=== PATIENT | female | born 1985 | race Caucasian/White ===

== ENCOUNTER 2017-04-13 13:00 | Emergency (ER) | payer OTHER ==
[~2017-04-13] VITALS: Ht 157.5 cm; Wt 61.0 kg
[~2017-04-13 13:00] MED LIST: CIPR500T4 PO; PHEN-538 PO
[2017-04-13 13:07] VITALS: Ht 157.5 cm; Wt 61.0 kg
[2017-04-13] MEDS ORDERED: ACETAMINOPHEN 500 MG TAB PO STA (13:20)
--- NOTE | 2017-04-13 13:22 | ERD ---
ER Documentation Chief Complaint Date/Time DATE: 04/13/17 TIME: 13:20 Chief Complaint DYSURIA X 5 DAYS HPI This a 32-year-old female who presents the emergency department today complaining of burning and pain with urination for the past 5 days. States that she also has urinary frequency. Patient states she initially had back pain but that resolved. States she had a urinary tract infection many years ago. States she had a little bit of blood when she wiped. Denies any fevers or chills. ROS All systems reviewed and are negative except as per history of present illness. Medications Home Meds Active Scripts Cephalexin* (Keflex*) 500 Mg Capsule, 500 MG PO QID for 7 Days, CAP Prov:ALEXANDER MIGUEL PA-C 04/13/17 Acetaminophen* (Tylophen*) 500 Mg Capsule, 1 CAP PO Q6H Y for PAIN AND OR ELEVATED TEMP, #30 CAP Prov:ALEXANDER MIGUEL PA-C 04/13/17 Phenazopyridine Hcl* (Pyridium*) 200 Mg Tab, 200 MG PO TID Y for DYSURIA, #6 TAB Prov:ALMA ALLEN MD 05/30/15 Ciprofloxacin Hcl* (Ciprofloxacin Hcl*) 500 Mg Tablet, 500 MG PO BID for 5 Days , TAB Prov:ALMA ALLEN MD 05/30/15 Reported Medications [None] No Conflict Check 10/22/11 Allergies Allergies: Coded Allergies: No Known Allergy (Unverified , 07/16/14) PMhx/Soc Medical and Surgical Hx: pt denies Medical Hx, pt denies Surgical Hx History of Surgery: No Anesthesia Reaction: No Hx Neurological Disorder: No Hx Respiratory Disorders: No Hx Cardiac Disorders: No Hx Psychiatric Problems: No Hx Miscellaneous Medical Probl: No Hx Alcohol Use: No Hx Substance Use: No Hx Tobacco Use: No Smoking Status: Never smoker Physical Exam Vitals Vital Signs Date Time Temp Pulse Resp B/P Pulse Ox O2 Delivery O2 Flow Rate FiO2 04/13/17 13:07 98.3 76 18 121/67 98 Physical Exam Const: No acute distress Head: Atraumatic Eyes: Normal Conjunctiva ENT: Normal External Ears, Nose and Mouth. Neck: Full range of motion..~ No meningismus. Resp: Clear to auscultation bilaterally Cardio: Regular rate and rhythm, no murmurs Abd: Soft, mild suprapubic tenderness, non distended. Normal bowel sounds. No right lower quadrant pain. No tenderness McBurney's. Skin: No petechiae or rashes Back: No midline or flank tenderness no CVA tenderness peer Ext: No cyanosis, or edema Neur: Awake and alert Psych: Normal Mood and Affect Results 24 hrs Laboratory Tests Test 04/13/17 13:31 Bedside Urine pH (LAB) 7.5 Bedside Urine Protein (LAB) 2+ Bedside Urine Glucose (UA) Negative Bedside Urine Ketones (LAB) Negative Bedside Urine Blood 1+ Bedside Urine Nitrite (LAB) Negative Bedside Urine Leukocyte Esterase (L 2+ Current Medications Medications (Trade) Dose Ordered Sig/Nick Route PRN Reason Start Time Stop Time Status Last Admin Dose Admin Acetaminophen (Tylenol Tab) 500 mg ONCE STAT PO 04/13/17 13:20 04/13/17 13:21 DC 04/13/17 13:29 Procedures/MDM This 32-year-old female who presents the emergency department today complaining of burning and pain with urination and urinary frequency for the past 5 days. UA shows 2+ leukocyte esterase and 1+ blood. Negative nitrates. Negative glucose. Patient symptoms at the time is consistent with urinary tract infection. Patient was given Tylenol here in the emergency department. Patient is afebrile and otherwise well-appearing. She has no CVA tenderness. Low suspicion for pyelonephritis or nephrolithiasis. Low suspicion for acute surgical abdomen. Patient given a prescription for Tylenol and Keflex for home At this time the patient is stable for discharge and outpatient management. Patient should follow up with their PCP in the next 1-2 days. They may return to the emergency department sooner for any persistent or worsening of symptoms. Patient understood and agreed with the plan. Departure Diagnosis: Primary Impression: UTI (urinary tract infection) Urinary tract infection type: site unspecified Hematuria presence: with hematuria Qualified Code: N39.0 - Urinary tract infection with hematuria, site unspecified Condition: ALEXANDER Robertson PA-C Apr 13, 2017 13:22
[2017-04-13 13:27] LABS: URINE BLOOD (Dip) POC 1+ (NEGATIVE)
[2017-04-13] MEDS ORDERED: ACET500C5 PO (13:34)
[2017-04-13] MEDS ORDERED: CEPH-443 PO (13:34)
== END 2017-04-13 13:40 | disposition home or self-care (01) ==
LOC: FTE 13:00
DX: N39.0 Urinary tract infection, site not specified (principal)
CPT/HCPCS: 81003; Z7610; 99283

== ENCOUNTER 2017-11-03 20:01 | Emergency (ER) | END 2017-11-03 21:09 | disposition home or self-care (01) ==

== ENCOUNTER 2017-12-26 10:27 | Emergency (ER) | END 2017-12-26 11:49 | disposition home or self-care (01) ==

== ENCOUNTER 2019-01-18 09:52 | Emergency (ER) | payer OTHER ==
[~2019-01-18] VITALS: Ht 157.5 cm; Wt 58.7 kg
[~2019-01-18 09:52] MED LIST changes: +ACET500C5 PO; +BENZ-6 PO; +CEPH-443 PO; +FLUT9.9S NASAL; +IBUP-1542 PO; +PHEN-537 PO
[2019-01-18 09:56] VITALS: BP 118/71; PULSE 79; RESP 18; Ht 157.5 cm; Wt 58.7 kg
[2019-01-18] MEDS ORDERED: D-ME473S2 PO (10:38)
[2019-01-18] MEDS ORDERED: AZIT250T PO (10:38)
[2019-01-18] MEDS ORDERED: MED4DP PO (10:38)
[2019-01-18] MEDS ORDERED: ALBU8.5H8 INH (10:38)
[2019-01-18] MEDS ORDERED: BENZ-6 PO (10:38)
--- NOTE | 2019-01-18 10:53 | ERD ---
ER Documentation Chief Complaint Chief Complaint cough and sorethroat HPI 33-year-old female presenting with cough and sore throat with tactile fevers at home. Has not taken medications for symptoms. Has a mild runny nose. Denies medical problems. NKDA. Surgical history . Social history denies ROS All systems reviewed and are negative except as per history of present illness. Medications Home Meds Active Scripts Azithromycin* (Zithromax*) 250 Mg Tablet, 250 MG PO .ZPACK DIRECTED, #6 TAB TAKE 500 MG (2 TABS) THE FIRST DAY THEN 250 MG (1 TAB) DAYS 2-5 Prov:AUSTIN GARCIA PA-C 01/18/19 Albuterol Sulfate* (Proair HFA*) 8.5 Gm Hfa.aer.ad, 2 PUFF INH Q4, #1 INHALER Prov:AUSTIN GARCIA PA-C 01/18/19 Methylprednisolone* (Medrol* DOSE PACK) 4 Mg/Dose-Pack Tab.ds.pk, 4 MG PO . DIRECTED, #1 PACKET Prov:AUSTIN GARCIA PA-C 01/18/19 Dextromethorphan Hb-Promethazine Hcl* (Promethazine DM* Syrup) 473 Ml Syrup, 5 ML PO Q6 PRN for COUGH, #100 ML Prov:AUSTIN GARCIA PA-C 01/18/19 Benzonatate* (Tessalon Perle*) 100 Mg Capsule, 100 MG PO Q8H PRN for COUGH, #30 CAP Prov:AUSTIN GARCIA PA-C 01/18/19 Ibuprofen* (Motrin*) 600 Mg Tab, 600 MG PO Q6, #30 TAB Prov:MARC YUN PA-C 12/26/17 Phenazopyridine Hcl* (Pyridium*) 100 Mg Tab, 100 MG PO TID PRN for URINARY PAIN, #8 TAB Prov:MARC YUN PA-C 12/26/17 Cephalexin* (Keflex*) 500 Mg Capsule, 500 MG PO TID for 5 Days, CAP Prov:MRAC YUN PA-C 12/26/17 Acetaminophen* (Tylophen*) 500 Mg Capsule, 1 CAP PO Q6H PRN for PAIN AND OR ELEVATED TEMP, #20 CAP Prov:MINERVA BAILEY CNA PCT 11/03/17 Fluticasone Propionate (Flonase Allergy Relief) 9.9 Ml [place].susp, 1 SPRAY NASAL BID, #1 BOTTLE TO EACH NOSTRIL Prov:MINERVA BAILEY CNA PCT 11/03/17 Benzonatate* (Tessalon Perle*) 100 Mg Capsule, 100 MG PO Q8H PRN for COUGH, #20 CAP Prov:MINERVA BAILEY CNA PCT 11/03/17 Ibuprofen* (Motrin*) 600 Mg Tab, 600 MG PO Q6H PRN for PAIN AND OR ELEVATED TEMP, #30 TAB Prov:MINERVA BAILEY CNA PCT 11/03/17 Cephalexin* (Keflex*) 500 Mg Capsule, 500 MG PO QID for 7 Days, CAP Prov:ALEXANDER MIGUELC 04/13/17 Acetaminophen* (Tylophen*) 500 Mg Capsule, 1 CAP PO Q6H PRN for PAIN AND OR ELEVATED TEMP, #30 CAP Prov:ALEXANDER MIGUELC 04/13/17 Phenazopyridine Hcl* (Pyridium*) 200 Mg Tab, 200 MG PO TID PRN for DYSURIA, #6 TAB Prov:ALMA ALLEN MD 05/30/15 Ciprofloxacin Hcl* (Ciprofloxacin Hcl*) 500 Mg Tablet, 500 MG PO BID for 5 Days, TAB Prov:ALMA ALLEN MD 05/30/15 Reported Medications [None] No Conflict Check 10/22/11 Allergies Allergies: Coded Allergies: No Known Allergy (Unverified , 01/18/19) PMhx/Soc History of Surgery: No Anesthesia Reaction: No Hx Neurological Disorder: No Hx Respiratory Disorders: No Hx Cardiac Disorders: No Hx Psychiatric Problems: No Hx Miscellaneous Medical Probl: No Hx Alcohol Use: No Hx Substance Use: No Hx Tobacco Use: No Smoking Status: Never smoker FmHx Family History: No diabetes, No coronary disease, No other Physical Exam Vitals Vital Signs Date Temp Pulse Resp B/P (MAP) Pulse Ox O2 O2 Flow FiO2 Time Delivery Rate 01/18/19 98.8 79 18 118/71 99 09:56 (87) Physical Exam GENERAL: The patient is well-appearing, well-nourished, in no acute distress HEENT: Atraumatic. Conjunctivae are pink. Pupils equal, round, and reactive to light. There is no scleral icterus. Tympanic membranes clear bilaterally. Oropharynx clear. NECK: C-spine is soft and supple. There is no meningismus. There is no cervical lymphadenopathy. CHEST: Clear to auscultation bilaterally. There are no rales, wheezes or rhonchi. HEART: Regular rate and rhythm. No murmurs, clicks, rubs or gallops. Procedures/MDM MDM: 33-year-old female presenting with URI symptoms. Patient is discharged with supportive medications. I have low suspicion for meningitis or sepsis. Patient has continued symptoms now treat with antibiotics. It is discharged stricter precautions and recommended follow-up with primary care. All questions answered at discharge Departure Diagnosis: Primary Impression: Cough Condition: Stable Patient Instructions: Cough, Chronic, Uncertain Cause, (Adult) Referrals: [facility] YOU HAVE RECEIVED A MEDICAL SCREENING EXAM AND THE RESULTS INDICATE THAT YOU DO NOT HAVE A CONDITION THAT REQUIRES URGENT TREATMENT IN THE EMERGENCY DEPARTMENT. FURTHER EVALUATION AND TREATMENT OF YOUR CONDITION CAN WAIT UNTIL YOU ARE SEEN IN YOUR DOCTORS OFFICE WITHIN THE NEXT 1-2 DAYS. IT IS YOUR RESPONSIBILITY TO MAKE AN APPOINTMENT FOR FOLOW-UP CARE. IF YOU HAVE A PRIMARY DOCTOR --you should call your primary doctor and schedule an appointment IF YOU DO NOT HAVE A PRIMARY DOCTOR YOU CAN CALL OUR PHYSICIAN REFERRAL HOTLINE AT IF YOU CAN NOT AFFORD TO SEE A PHYSICIAN YOU CAN CHOSE FROM THE FOLLOWING [facility] [address] [facility] [address] [facility] [facility] [address] [facility] [facility] [address] [facility]. [facility] [address] [facility]. [facility]. [address] Additional Instructions: FOLLOW UP WITH YOUR PRIMARY CARE PHYSICIAN TOMORROW.Return to this facility if you are not improving as expected. AUSTIN GARCIA PA-C Jan 18, 2019 10:53
== END 2019-01-18 10:47 | disposition home or self-care (01) ==
LOC: FTE 09:52
DX: R05 Cough (principal)
CPT/HCPCS: 99283